=== PATIENT | female | born 1980 | race Caucasian/White ===

== ENCOUNTER → 2016-08-03 | Outpatient (CLI) | payer OTHER ==
[~2016-08-03] MED LIST: CHOL100010 PO; CIPR-255 PO; IBUP-1050 PO; LEVO100T PO; MULT-506 PO
[2016-08-06 13:38] LABS: MICROSOMAL AB 164 IU/ML (<9); T3 REVERSE **TC 90963 14 ng/dL (8-25)
== END | disposition home or self-care (01) ==
LOC: C.LAB 11:57
PROVIDERS: ATTEND Chiropractor
DX: M79.1 Myalgia (principal)